=== PATIENT | male | born 1975 | race Caucasian/White ===

== ENCOUNTER 2019-05-03 19:58 | Emergency (ER) | payer OTHER ==
[~2019-05-03] VITALS: Ht 182.9 cm; Wt 99.8 kg
[2019-05-03 20:21] VITALS: BP 136/80
--- NOTE | 2019-05-03 20:23 | PHYS DOC ---
Past History Past Medical History: No Pertinent History Past Surgical History: No Surgical History Smoking: Cigarettes, Less than 1pk/day Alcohol Use: None Drug Use: None Adult General Chief Complaint Chief Complaint: EARACHE/EAR PAIN HPI HPI Patient is a 43-year-old male presents with right ear pain. This has been present for approximately the past 2 hours. He has an issue where he makes too much cerumen. He has had no relief with using the Debrox kit. Pain is moderate. Nothing seems to make it better or worse. Denies any trauma. Patient is visiting here from his home in [facility].[] Review of Systems Review of Systems Constitutional: Denies fever or chills [] Eyes: Denies change in visual acuity, redness, or eye pain [] HENT: Denies nasal congestion or sore throat , see history of present illness[] Respiratory: Denies cough or shortness of breath [] Cardiovascular: Chest pain or palpitations HPI [] GI: Denies abdominal pain, nausea, vomiting, bloody stools or diarrhea [] : Denies dysuria or hematuria [] Musculoskeletal: Denies back pain or joint pain [] Integument: Denies rash or skin lesions [] Neurologic: Denies headache, focal weakness or sensory changes [] Endocrine: Denies polyuria or polydipsia [] All other systems were reviewed and found to be within normal limits, except as documented in this note. Allergies Allergies Allergies Coded Allergies Type Severity Reaction Last Updated Verified No Known Drug Allergies 05/03/19 No Physical Exam Physical Exam Constitutional: Well developed, well nourished, no acute distress, non-toxic appearance. [] HENT: Normocephalic, atraumatic, bilateral external ears normal, no pain with tragus tug. Bilateral ear canals have cerumen blocking visualization of the TM. Oropharynx moist, no oral exudates, nose normal. [] Eyes: PERRLA, EOMI, conjunctiva normal, no discharge. [] Neck: Normal range of motion, no tenderness, supple, no stridor. [] Cardiovascular:Heart rate regular rhythm, no murmur [] Lungs & Thorax: Bilateral breath sounds clear to auscultation [] Abdomen: Not examined. [] Skin: Warm, dry, no erythema, no rash. [] Back: No tenderness, no CVA tenderness. [] Extremities: No tenderness, no cyanosis, no clubbing, ROM intact, no edema. [] Neurologic: Alert and oriented X 3, normal motor function, normal sensory function, no focal deficits noted. [] Psychologic: Affect normal, judgement normal, mood normal. [] EKG EKG [] Radiology/Procedures Radiology/Procedures [] Course & Med Decision Making Course & Med Decision Making Pertinent Labs and Imaging studies reviewed. (See chart for details) ED course: Patient arrived, was placed in bed, and tolerated exam well. He had your dictation performed which remove wax and gave him significant relief. Reexamination shows TM to be clear without any fluid behind it. He was discharged in improved condition with all questions answered. Medical decision making: This appears to be a cerumen impaction. No evidence of otitis media, otitis externa, nor mastoiditis. No meningitis or encephalitis.[] Dragon Disclaimer Dragon Disclaimer This electronic medical record was generated, in whole or in part, using a voice recognition dictation system. Departure Departure: Impression: Primary Impression: Impacted cerumen of right ear Disposition: 01 HOME, SELF-CARE Condition: IMPROVED Referrals: PCP,NO (PCP) Patient Instructions: Cerumen Impaction Additional Instructions: Follow-up with your regular doctor in 2 days. Continue using the Debrox as directed on the package. Return to the ER for sitting pain or any other concerns. CHACORTA HOYT DO May 03, 2019 20:23
[2019-05-03] MEDS ORDERED: CARBAMIDE PEROXIDE 6.5% OTIC SOLUTION 15ML BOTTLE. AU ONE (20:30)
== END 2019-05-03 21:15 | disposition home or self-care (01) ==
LOC: ER 19:58
DX: H61.21 Impacted cerumen, right ear (principal); F17.210 Nicotine dependence, cigarettes, uncomplicated
CPT/HCPCS: 69209; 99282